=== PATIENT | male | born 1940 ===

== ENCOUNTER 2021-08-01 13:36 | Inpatient (IN) | payer MEDICARE, OTHER ==
[~2021-08-01] VITALS: Ht 152.4 cm; Wt 69.4 kg
[2021-08-01] MEDS ORDERED: IV NORMAL SALINE 1000ML BAG 1,000 ML IV ONE (14:15)
[2021-08-01 14:27] LABS: BASO % 1 % (0-3); EOS % 0 % (0-3); HEMATOCRIT 41.9 % (39.0-53.0); HEMOGLOBIN 13.9 g/dL (13.0-17.5); LYMPH # 0.8 x10^3/uL (1.0-4.8); LYMPH % 14 % (24-48); MEAN CORPUSCULAR HEMOGLOBIN 28 pg (25-35); MEAN CORPUSCULAR HGB CONC 33 g/dL (31-37); MEAN CORPUSCULAR VOLUME 85 fL (79-100); MONO # 0.8 x10^3/uL (0.0-1.1); MONO % 15 % (0-9); NEUT # 3.7 x10^3/uL (1.8-7.7); NEUT % 70 % (31-73); PLATELET COUNT 216 x10^3/uL (140-400); RED BLOOD COUNT 4.93 x10^6/uL (4.30-5.70); RED CELL DISTRIBUTION WIDTH 13.8 % (11.5-14.5); WHITE BLOOD COUNT 5.3 x10^3/uL (4.0-11.0)
[2021-08-01 14:32] LABS: CREATININE 1.3 mg/dL (0.7-1.3); GFR 52.9
[2021-08-01 14:37] LABS: ALBUMIN 3.7 g/dL (3.4-5.0); ALBUMIN/GLOBULIN RATIO 1.2 (1.0-1.7); TOTAL BILIRUBIN 0.6 mg/dL (0.2-1.0); TOTAL PROTEIN 6.9 g/dL (6.4-8.2)
--- NOTE | 2021-08-01 14:45 | RAD ---
EXAM: Head and cervical spine CT without contrast. HISTORY: Fall. TECHNIQUE: Computed tomographic images of the head and cervical spine were obtained without contrast. *One or more of the following individualized dose reduction techniques were utilized for this examina tion: 1. Automated exposure control. 2. Adjustment of the mA and/or kV according to patient size. 3. Use of iterative reconstruction technique. COMPARISON: None. FINDINGS: Head: There is no intracranial hemorrhage. There is no mass effect or midline shift. There is no hydr ocephalus. There is ventricular enlargement due to cerebral atrophy. There are chronic infarcts withi n the bilateral basal ganglia. There are cerebral white matter changes due to chronic small vessel di sease. There is evidence of lens surgery. There is a tiny right maxillary sinus mucous retention cyst . The mastoid air cells are clear. There is no suspicious calvarial lesion. Cervical spine: There is mild multilevel listhesis. There is multilevel endplate remodeling with disc space narrowing, osteophytosis and Schmorl's node formation. There is multilevel facet arthropathy. There is no acute fracture. There is calcified plaque involving the carotid bifurcations. There is pu lmonary emphysema. The combination of degenerative changes results in mild right foraminal stenosis a t C2-C3, and moderate to severe bilateral foraminal and mild to moderate central canal stenosis at C3 -C4, severe bilateral foraminal and moderate to severe central canal stenosis at C4-C5, moderate righ t and mild left foraminal and mild central canals of cysts at C5-C6, and moderate to severe bilateral foraminal and mild to moderate central canal stenosis at C6-C7. IMPRESSION: 1. No acute intracranial finding or evidence of acute cervical spine trauma. 2. Cerebral white matter changes due to chronic small vessel disease. 3. Cerebral atrophy with compensatory enlargement of the ventricles. 4. 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 5. 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 Electronically signed by: Amanda Baca MD (08/01/2021 2:43 PM) [id number]
--- NOTE | 2021-08-01 14:50 | RAD ---
EXAM: Chest, single view. HISTORY: Altered mental status. COMPARISON: None. FINDINGS: A frontal view of the chest obtained. There is no infiltrate, pleural effusion or pneumotho rax. The heart is normal in size. IMPRESSION: No acute pulmonary finding. Electronically signed by: Amanda Baca MD (08/01/2021 2:48 PM) [id number]
[2021-08-01 15:04] LABS: BILIRUBIN,URINE NEGATIVE (NEG); CLARITY,URINE CLEAR; COLOR,URINE YELLOW; NITRITE,URINE NEGATIVE (NEG); PH,URINE 5.5 (<5.0-8.0); PROTEIN,URINE NEGATIVE (NEG-TRACE)
--- NOTE | 2021-08-01 15:11 | PHYS DOC ---
Past Medical History Past Medical History: No Pertinent History (TAMARA NELSON DO) Past Surgical History: No Surgical History (SANDRA PULIDO) Smoking Status: Never Smoker Alcohol Use: None (SANDRA PULIDO) General Adult EDM: Chief Complaint: ALTERED MENTAL STATUS HPI: HPI: Patient is a 81 year old male who presents via EMS with reported AMS and fall from standing. Patient reports he was walking to his sisters house, and he had been "walking a long, long ways." He reports he fell while walking and scraped his forehead. He denies loss of consciousness, nausea, vomiting, seizure since his fall. He has no other complaints. (SANDRA PULIDO) Review of Systems: Review of Systems: Constitutional: Denies fever or chills. Eyes: Denies change in visual acuity or visual field deficits. HENT: Denies nasal congestion or sore throat. Respiratory: Denies cough or shortness of breath. Cardiovascular: Denies chest pain or edema. GI: Denies abdominal pain, nausea, vomiting, bloody stools or diarrhea. : Denies dysuria or hematuria Musculoskeletal: Denies back pain or joint pain. Integument: See HPI Neurologic: See HPI ROS & HPI obtained, however may be unreliable secondary to patient's mental status. (SANDRA PULIDO) Heart Score: C/O Chest Pain: No (SANDRA PULIDO) Current Medications: Current Medications Medications (Trade) Dose Ordered Sig/Rob Start Time Stop Time Status Last Admin Dose Admin Sodium Chloride 1,000 ml @ 1,000 mls/hr 1X ONCE 08/01/21 14:15 08/01/21 15:14 08/01/21 14:48 1,000 MLS/HR (SANDRA PULIDO) Allergies: Allergies: Allergies Coded Allergies Type Severity Reaction Last Updated Verified No Known Drug Allergies 08/01/21 No (SANDRA PULIDO) Physical Exam: PE: Constitutional: Well developed, well nourished, no acute distress, non-toxic appearance. HENT: Small abrasion noted on the central forehead near the hairline with surrounding hematoma, otherwise normocephalic. Bilateral external ears normal, oropharynx moist, nose normal. Eyes: PERRLA, EOMI, conjunctiva normal, no discharge. Neck: Normal range of motion, no tenderness, supple. Cardiovascular: Heart rate regular rhythm, no murmur. Lungs & Thorax: Bilateral breath sounds clear to auscultation. Abdomen: Bowel sounds normal, soft, no tenderness, no masses, no pulsatile masses. Skin: Warm, dry, no erythema, no rash. See above for forehead abrasion. Back: No tenderness, no CVA tenderness. Extremities: No tenderness, no cyanosis, no clubbing, ROM intact, no edema. Neurologic: Alert and oriented x4 on exam (nursing staff reports alert to person and season only), motor function grossly intact, sensory function grossly intact, no focal deficits noted. (SANDRA PULIDO) Current Patient Data: Labs: Laboratory Tests Test 08/01/21 14:14 08/01/21 14:57 08/01/21 16:37 White Blood Count 5.3 x10^3/uL (4.0-11.0) Red Blood Count 4.93 x10^6/uL (4.30-5.70) Hemoglobin 13.9 g/dL (13.0-17.5) Hematocrit 41.9 % (39.0-53.0) Mean Corpuscular Volume 85 fL (79-100) Mean Corpuscular Hemoglobin 28 pg (25-35) Mean Corpuscular Hemoglobin Concent 33 g/dL (31-37) Red Cell Distribution Width 13.8 % (11.5-14.5) Platelet Count 216 x10^3/uL (140-400) Neutrophils (%) (Auto) 70 % (31-73) Lymphocytes (%) (Auto) 14 % (24-48) Monocytes (%) (Auto) 15 % (0-9) Eosinophils (%) (Auto) 0 % (0-3) Basophils (%) (Auto) 1 % (0-3) Neutrophils # (Auto) 3.7 x10^3/uL (1.8-7.7) Lymphocytes # (Auto) 0.8 x10^3/uL (1.0-4.8) Monocytes # (Auto) 0.8 x10^3/uL (0.0-1.1) Eosinophils # (Auto) 0.0 x10^3/uL (0.0-0.7) Basophils # (Auto) 0.0 x10^3/uL (0.0-0.2) Sodium Level 141 mmol/L (136-145) Potassium Level 4.0 mmol/L (3.5-5.1) Chloride Level 104 mmol/L (98-107) Carbon Dioxide Level 25 mmol/L (21-32) Anion Gap 12 (6-14) Blood Urea Nitrogen 20 mg/dL (8-26) Creatinine 1.3 mg/dL (0.7-1.3) Estimated GFR (Cockcroft-Gault) 52.9 BUN/Creatinine Ratio 15 (6-20) Glucose Level 79 mg/dL (70-99) Lactic Acid Level 2.7 mmol/L (0.4-2.0) Calcium Level 9.0 mg/dL (8.5-10.1) Total Bilirubin 0.6 mg/dL (0.2-1.0) Aspartate Amino Transf (AST/SGOT) 28 U/L (15-37) Alanine Aminotransferase (ALT/SGPT) 12 U/L (16-63) Alkaline Phosphatase 76 U/L (46-116) Total Protein 6.9 g/dL (6.4-8.2) Albumin 3.7 g/dL (3.4-5.0) Albumin/Globulin Ratio 1.2 (1.0-1.7) Urine Collection Type Unknown Urine Color Yellow Urine Clarity Clear Urine pH 5.5 (<5.0-8.0) Urine Specific [place] 1.025 (1.000-1.030) Urine Protein Negative mg/dL (NEG-TRACE) Urine Glucose (UA) Negative mg/dL (NEG) Urine Ketones (Stick) 15 mg/dL (NEG) Urine Blood Negative (NEG) Urine Nitrite Negative (NEG) Urine Bilirubin Negative (NEG) Urine Urobilinogen Dipstick 1.0 mg/dL (0.2 mg/dL) Urine Leukocyte Esterase Moderate (NEG) Urine RBC 0 /HPF (0-2) Urine WBC >40 /HPF (0-4) Urine Squamous Epithelial Cells Few /LPF Urine Amorphous Sediment Present /HPF Urine Bacteria Few /HPF (0-FEW) SARS-CoV-2 Antigen (Rapid) Negative (NEGATIVE) Laboratory Tests 08/01/21 14:14 Laboratory Tests 08/01/21 14:14 Vital Signs: Vital Signs Date Time Temp Pulse Resp B/P (MAP) Pulse Ox O2 Delivery O2 Flow Rate FiO2 08/01/21 14:50 89 16 162/78 (106) 98 Room Air 08/01/21 13:45 98.7 113 20 172/76 (108) 98 Room Air 98.7 (SANDRA PULIDO) EKG: EKG: EKG Interpreted by Dr. Dr. Nelson at 1512: Elevated heart rate 125 bpm with sinus arrhythmia, no ectopic beats. No concerning ST-T wave changes. QT 348 ms/QTC 504 ms. (SANDRA PULIDO) Radiology/Procedures: Radiology/Procedures: PROCEDURE: PORTABLE CHEST 1V EXAM: Chest, single view. HISTORY: Altered mental status. COMPARISON: None. FINDINGS: A frontal view of the chest obtained. There is no infiltrate, pleural effusion or pneumothorax. The heart is normal in size. IMPRESSION: No acute pulmonary finding. Electronically signed by: Amanda Baca MD (08/01/2021 2:48 PM) [id number] PROCEDURE: CT HEAD AND CERVICAL SPINE WO EXAM: Head and cervical spine CT without contrast. HISTORY: Fall. TECHNIQUE: Computed tomographic images of the head and cervical spine were obtained without contrast. *One or more of the following individualized dose reduction techniques were utilized for this examination: 1. Automated exposure control. 2. Adjustment of the mA and/or kV according to patient size. 3. Use of iterative reconstruction technique. COMPARISON: None. FINDINGS: Head: There is no intracranial hemorrhage. There is no mass effect or midline shift. There is no hydrocephalus. There is ventricular enlargement due to cerebral atrophy. There are chronic infarcts within the bilateral basal ganglia. There are cerebral white matter changes due to chronic small vessel disease. There is evidence of lens surgery. There is a tiny right maxillary sinus mucous retention cyst. The mastoid air cells are clear. There is no suspicious calvarial lesion. Cervical spine: There is mild multilevel listhesis. There is multilevel endplate remodeling with disc space narrowing, osteophytosis and Schmorl's node formation. There is multilevel facet arthropathy. There is no acute fracture. There is calcified plaque involving the carotid bifurcations. There is pulmonary emphysema. The combination of degenerative changes results in mild right foraminal stenosis at C2-C3, and moderate to severe bilateral foraminal and mild to moderate central canal stenosis at C3-C4, severe bilateral foraminal and moderate to severe central canal stenosis at C4-C5, moderate right and mild left foraminal and mild central canals of cysts at C5-C6, and moderate to severe so ateral foraminal and mild to moderate central canal stenosis at C6-C7. IMPRESSION: 1. No acute intracranial finding or evidence of acute cervical spine trauma. 2. Cerebral white matter changes due to chronic small vessel disease. 3. Cerebral atrophy with compensatory enlargement of the ventricles. 4. 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 5. 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 Electronically signed by: Amanda Baca MD (08/01/2021 2:43 PM) [id number] (SANDRA PULIDO) Course & Med Decision Making: Course & Med Decision Making Pertinent Labs and Imaging studies reviewed. (See chart for details) Patient work-up will include blood work, urinalysis, EKG, chest x-ray, head and neck CT plain. Patient's urine shows evidence of UTI. Due to patient's mode of arrival, he does not have transportation available to pharmacy picking technician prescriptions or get home. Patient does not have his sister's cell phone number available, nor does he have a cell phone. Patient will need admission for inpatient treatment of UTI with altered mental status. Will notify family if they call or contact information becomes available. Patient admitted to hospitalist service for septic UTI. (SANDRA PULIDO) Dragon Disclaimer: Dragon Disclaimer: This electronic medical record was generated, in whole or in part, using a voice recognition dictation system. (SANDRA PULIDO) Departure Departure Impression: Primary Impression: Altered mental status Qualified Codes: R41.0 - Disorientation, unspecified Additional Impressions: Urinary tract infection in elderly patient Urinary tract infection in male Disposition: ADMITTED INPATIENT Condition: GUARDED Attending Signature Attending Signature I have reviewed the PA/SENIOR PRODUCT MARKETING MANAGER's note and plan of care. I was available for consultation as needed during the patient's visit in the emergency department. I agree with the clinical impression, plan, and disposition. (TAMARA NELSON DO) SANDRA PULIDO Aug 01, 2021 15:11 TAMARA NELSON DO Aug 02, 2021 06:33
[2021-08-01 15:23] LABS: RBC,URINE 0 /HPF (0-2); WBC,URINE >40 /HPF (0-4)
[2021-08-01 15:24] LABS: AMORPHOUS SEDIMENT,UR PRESENT /HPF; BACTERIA,URINE FEW /HPF (0-FEW)
--- NOTE | 2021-08-01 15:36 | EKG ---
[facility] [address] [place] [address] Test Date: 2021-08-01 Test Time: 14:59:45 Pat Name: TED HOPE Department: Room: Gender: M Jewellery Designer: : 1940 Requested By: SANDRA PULIDO Order Number: [id number] Reading MD: Vamshi Swift Measurements Intervals [place] Rate: 125 P: [place]: QRS: -24 QRSD: 66 T: 31 QT: 348 QTc: 504 Interpretive Statements SINUS RHYTHM MILD NONSPECIFIC ST CHANGES Electronically Signed On 08-03-2021 9:50:59 ELECTRICAL TESTS SUPERVISOR by Vamshi Swift
--- NOTE | 2021-08-01 17:27 | PDOC1 ---
History and Physical Date of Admission Date of Admission DATE: 08/01/21 TIME: 17:23 Identification/Chief Complaint Chief Complaint Confusion Source Source: Chart review, Patient History of Present Illness History of Present Illness Mr Cerda is an 81 year old male with no known PMHx who comes to the ED via EMS after being found wandering by police. Pt was found by [facility] at the corner of [address] [place] [address]. Per EMS he apparently tripped on the curb and had an abrasion on his forehead. He could not identify the year or month and noted he was running to his sisters house. He does not know his sisters address. He thinks he takes 2 medications. Denies any surgical history, denies travel or sick contacts. He does not drink or smoke or use illicit substances. He reports he fell while walking and scraped his forehead. He denies loss of consciousness, nausea, vomiting, seizure since his fall. He has no other complaints. He is oriented to person only and is easily redirected but cannot provide health information or even his address despite it being on his ID. WBC 5.3, Hb 13.9, platelets 216, NA 141, K4, BUN 20, CR 1.3, LFTs within normal laboratory limits, lactic acid 2.7, urinalysis with moderate leuk esterase, rapid COVID-19 negative EKG appears sinus tachycardia 125 bpm leftward axis. Normal intervals, QTC 504 CT head with no acute intracranial findings in the brain or cervical spine, significant cerebral atrophy, chronic bilateral basal ganglia infarcts Chest radiograph with no acute findings Admitted for further care Past Medical History Past Medical History reviewed Cardiovascular: No pertinent hx Past Surgical History Past Surgical History reviewed Past Surgical History: No pertinent history Family History Family History reviewed Family History: Family History Unknown Social History Smoke: No ALCOHOL: none Drugs: None Current Problem List Problem List Problems Medical Problems: (1) Altered mental status Status: Acute (2) Urinary tract infection in elderly patient Status: Acute (3) Urinary tract infection in male Status: Acute Current Medications Current Medications Current Medications Sodium Chloride 1,000 ml @ 1,000 mls/hr 1X ONCE IV Last administered on 08/01/21at 14:48; Start 08/01/21 at 14:15; Stop 08/01/21 at 15:14; Status DC Allergies Allergies: Coded Allergies: No Known Drug Allergies (Unverified , 08/01/21) ROS General: No: Chills, Night Sweats, Fatigue, Malaise, Appetite, Other PSYCHOLOGICAL ROS: YES: Concentration difficultie, Disorientation, Memory difficulties; No: Anxiety, Behavioral Disorder, Decreased libido, Depression, Hallucinations, Hostility, Irritablity, Mood Swings, Obsessive thoughts, Phy sical abuse, Sexual abuse, Sleep disturbances, Suicidal ideation, Other Eyes: No Blurry vision, No Decreased vision, No Double vision, No Dry eyes, No Excessive tearing, No Eye Pain, No Itchy Eyes, No Loss of vision, No Photophobia, No Scotomata, No Uses contacts, No Uses glasses, No Other HEENT: No: Heacaches, Visual Changes, Hearing change, Nasal congestion, Nasal discharge, Oral lesions, Sinus pain, Sore Throat, Epistaxis, Sneezing, Snoring, Tinnitus, Vertigo, Vocal changes, Other ALLERGY AND IMMUNOLOGY: No: Hives, Insect Bite Sensitivity, Itchy/Watery Eyes, Nasal Congestion, Post Nasal Drip, Seasonal Allergies, Other Hematological and Lymphatic: No: Bleeding Problems, Blood Clots, Blood Transfusions, Brusing, Night Sweats, Pallor, Swollen Lymph Nodes, Other ENDOCRINE: No: Breast Changes, Galactorrhea, Hair Pattern Changes, Hot Flashes, Malaise/lethargy, Mood Swings, Palpitations, Polydipsia/polyuria, Skin Changes, Temperature Intolerance, Unexpected Weight Changes, Other Breast: No New/Changing Breast Lumps, No Nipple changes, No Nipple discharge, No Other Respiratory: No: Cough, Hemoptysis, Orthopnea, Pleuritic Pain, Shortness of breath, SOB with excertion, Sputum Changes, Stridor, Tachypnea, Wheezing, Other Cardiovascular: No Chest Pain, No Palpitations, No Orthopnea, No Paroxysmal Noc. Dyspnea, No Edema, No Lt Headedness, No Other Gastrointestinal: No Nausea, No Vomiting, No Abdominal Pain, No Diarrhea, No Constipation, No Melena, No Hematochezia, No Other Genitourinary: No Dysuria, No Frequency, No Incontinence, No Hematuria, No Retention, No Discharge, No Urgency, No Pain, No Flank Pain, No Other, No , No , No , No , No , No , No Musculoskeletal: No Gait Disturbance, No Joint Pain, No Joint Stiffness, No Joint Swelling, No Muscle Pain, No Muscular Weakness, No Pain In:, No Swelling In:, No Other Neurological: Yes Confusion, Yes Memory Loss; No Behavorial Changes, No Bowel/Bladder ControlChng, No Dizziness, No Gait Disturbance, No Headaches, No Impaired Coord/balance, No Numbness/Tingling, No Seizures, No Speech Problems, No Tremors, No Visual Changes, No Weakness, No Other Skin: No Dry Skin, No Eczema, No Hair Changes, No Lumps, No Mole Changes, No Mottling, No Nail Changes, No Pruritus, No Rash, No Skin Lesion Changes, No Other, No Acne Physical Exam General: Alert, Cooperative, No acute distress HEENT: Atraumatic, PERRLA, EOMI, Mucous membr. moist/pink, Other (arcus senilus) Lungs: Clear to auscultation, Normal air movement Heart: S1S2, RRR, no thrills, no rubs, no gallops, no murmurs Abdomen: Normal bowel sounds, Soft, No tenderness, No hepatosplenomegaly, No m asses Rectal Exam: not examined Extremities: No clubbing, No cyanosis, No edema, Normal pulses, No tenderness/swelling Skin: No rashes, No breakdown, No significant lesion Neuro: Normal gait, Normal speech, Strength at 5/5 X4 ext, Normal tone, Sensation intact, Cranial nerves 3-12 NL, Reflexes 2+ Psych/Mental Status: Other (Pleasantly confused) Vitals Vitals Vital Signs Date Time Temp Pulse Resp B/P (MAP) Pulse Ox O2 Delivery O2 Flow Rate FiO2 08/01/21 14:50 89 16 162/78 (106) 98 Room Air 08/01/21 13:45 98.7 98.7 Labs Labs Laboratory Tests Test 08/01/21 14:14 08/01/21 14:57 08/01/21 16:37 White Blood Count 5.3 x10^3/uL (4.0-11.0) Red Blood Count 4.93 x10^6/uL (4.30-5.70) Hemoglobin 13.9 g/dL (13.0-17.5) Hematocrit 41.9 % (39.0-53.0) Mean Corpuscular Volume 85 fL (79-100) Mean Corpuscular Hemoglobin 28 pg (25-35) Mean Corpuscular Hemoglobin Concent 33 g/dL (31-37) Red Cell Distribution Width 13.8 % (11.5-14.5) Platelet Count 216 x10^3/uL (140-400) Neutrophils (%) (Auto) 70 % (31-73) Lymphocytes (%) (Auto) 14 % (24-48) Monocytes (%) (Auto) 15 % (0-9) Eosinophils (%) (Auto) 0 % (0-3) Basophils (%) (Auto) 1 % (0-3) Neutrophils # (Auto) 3.7 x10^3/uL (1.8-7.7) Lymphocytes # (Auto) 0.8 x10^3/uL (1.0-4.8) Monocytes # (Auto) 0.8 x10^3/uL (0.0-1.1) Eosinophils # (Auto) 0.0 x10^3/uL (0.0-0.7) Basophils # (Auto) 0.0 x10^3/uL (0.0-0.2) Sodium Level 141 mmol/L (136-145) Potassium Level 4.0 mmol/L (3.5-5.1) Chloride Level 104 mmol/L (98-107) Carbon Dioxide Level 25 mmol/L (21-32) Anion Gap 12 (6-14) Blood Urea Nitrogen 20 mg/dL (8-26) Creatinine 1.3 mg/dL (0.7-1.3) Estimated GFR (Cockcroft-Gault) 52.9 BUN/Creatinine Ratio 15 (6-20) Glucose Level 79 mg/dL (70-99) Lactic Acid Level 2.7 mmol/L (0.4-2.0) Calcium Level 9.0 mg/dL (8.5-10.1) Total Bilirubin 0.6 mg/dL (0.2-1.0) Aspartate Amino Transf (AST/SGOT) 28 U/L (15-37) Alanine Aminotransferase (ALT/SGPT) 12 U/L (16-63) Alkaline Phosphatase 76 U/L (46-116) Total Protein 6.9 g/dL (6.4-8.2) Albumin 3.7 g/dL (3.4-5.0) Albumin/Globulin Ratio 1.2 (1.0-1.7) Urine Collection Type Unknown Urine Color Yellow Urine Clarity Clear Urine pH 5.5 (<5.0-8.0) Urine Specific [place] 1.025 (1.000-1.030) Urine Protein Negative mg/dL (NEG-TRACE) Urine Glucose (UA) Negative mg/dL (NEG) Urine Ketones (Stick) 15 mg/dL (NEG) Urine Blood Negative (NEG) Urine Nitrite Negative (NEG) Urine Bilirubin Negative (NEG) Urine Urobilinogen Dipstick 1.0 mg/dL (0.2 mg/dL) Urine Leukocyte Esterase Moderate (NEG) Urine RBC 0 /HPF (0-2) Urine WBC >40 /HPF (0-4) Urine Squamous Epithelial Cells Few /LPF Urine Amorphous Sediment Present /HPF Urine Bacteria Few /HPF (0-FEW) SARS-CoV-2 Antigen (Rapid) Negative (NEGATIVE) Laboratory Tests Test 08/01/21 14:14 08/01/21 14:57 08/01/21 16:37 White Blood Count 5.3 x10^3/uL (4.0-11.0) Red Blood Count 4.93 x10^6/uL (4.30-5.70) Hemoglobin 13.9 g/dL (13.0-17.5) Hematocrit 41.9 % (39.0-53.0) Mean Corpuscular Volume 85 fL (79-100) Mean Corpuscular Hemoglobin 28 pg (25-35) Mean Corpuscular Hemoglobin Concent 33 g/dL (31-37) Red Cell Distribution Width 13.8 % (11.5-14.5) Platelet Count 216 x10^3/uL (140-400) Neutrophils (%) (Auto) 70 % (31-73) Lymphocytes (%) (Auto) 14 % (24-48) Monocytes (%) (Auto) 15 % (0-9) Eosinophils (%) (Auto) 0 % (0-3) Basophils (%) (Auto) 1 % (0-3) Neutrophils # (Auto) 3.7 x10^3/uL (1.8-7.7) Lymphocytes # (Auto) 0.8 x10^3/uL (1.0-4.8) Monocytes # (Auto) 0.8 x10^3/uL (0.0-1.1) Eosinophils # (Auto) 0.0 x10^3/uL (0.0-0.7) Basophils # (Auto) 0.0 x10^3/uL (0.0-0.2) Sodium Level 141 mmol/L (136-145) Potassium Level 4.0 mmol/L (3.5-5.1) Chloride Level 104 mmol/L (98-107) Carbon Dioxide Level 25 mmol/L (21-32) Anion Gap 12 (6-14) Blood Urea Nitrogen 20 mg/dL (8-26) Creatinine 1.3 mg/dL (0.7-1.3) Estimated GFR (Cockcroft-Gault) 52.9 BUN/Creatinine Ratio 15 (6-20) Glucose Level 79 mg/dL (70-99) Lactic Acid Level 2.7 mmol/L (0.4-2.0) Calcium Level 9.0 mg/dL (8.5-10.1) Total Bilirubin 0.6 mg/dL (0.2-1.0) Aspartate Amino Transf (AST/SGOT) 28 U/L (15-37) Alanine Aminotransferase (ALT/SGPT) 12 U/L (16-63) Alkaline Phosphatase 76 U/L (46-116) Total Protein 6.9 g/dL (6.4-8.2) Albumin 3.7 g/dL (3.4-5.0) Albumin/Globulin Ratio 1.2 (1.0-1.7) Urine Collection Type Unknown Urine Color Yellow Urine Clarity Clear Urine pH 5.5 (<5.0-8.0) Urine Specific [place] 1.025 (1.000-1.030) Urine Protein Negative mg/dL (NEG-TRACE) Urine Glucose (UA) Negative mg/dL (NEG) Urine Ketones (Stick) 15 mg/dL (NEG) Urine Blood Negative (NEG) Urine Nitrite Negative (NEG) Urine Bilirubin Negative (NEG) Urine Urobilinogen Dipstick 1.0 mg/dL (0.2 mg/dL) Urine Leukocyte Esterase Moderate (NEG) Urine RBC 0 /HPF (0-2) Urine WBC >40 /HPF (0-4) Urine Squamous Epithelial Cells Few /LPF Urine Amorphous Sediment Present /HPF Urine Bacteria Few /HPF (0-FEW) SARS-CoV-2 Antigen (Rapid) Negative (NEGATIVE) Images Images Chest radiograph: A frontal view of the chest obtained. There is no infiltrate, pleural effusion or pneumothorax. The heart is normal in size. IMPRESSION: No acute pulmonary finding. CT HEAD AND CERVICAL SPINE WO Head: There is no intracranial hemorrhage. There is no mass effect or midline shift. There is no hydrocephalus. There is ventricular enlargement due to cerebral atrophy. There are chronic infarcts within the bilateral basal ganglia. There are cerebral white matter changes due to chronic small vessel disease. There is evidence of lens surgery. There is a tiny right maxillary sinus mucous retention cyst. The mastoid air cells are clear. There is no suspicious calvarial lesion. Cervical spine: There is mild multilevel listhesis. There is multilevel endplate remodeling with disc space narrowing, osteophytosis and Schmorl's node formation. There is multilevel facet arthropathy. There is no acute fracture. There is calcified plaque involving the carotid bifurcations. There is pulmonary emphysema. The combination of degenerative changes results in mild right foraminal stenosis at C2-C3, and moderate to severe bilateral foraminal and mild to moderate central canal stenosis at C3-C4, severe bilateral foraminal and moderate to severe central canal stenosis at C4-C5, moderate right and mild left foraminal and mild central canals of cysts at C5-C6, and moderate to severe bilateral foraminal and mild to moderate central canal stenosis at C6-C7. IMPRESSION: 1. No acute intracranial finding or evidence of acute cervical spine trauma. 2. Cerebral white matter changes due to chronic small vessel disease. 3. Cerebral atrophy with compensatory enlargement of the ventricles. 4. 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 5. 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 VTE Prophylaxis Ordered VTE Prophylaxis Devices: No VTE Pharmacological Prophylaxi: Yes Assessment/Plan Assessment/Plan A/P: Acute encephalopathy - likely metabolic due to UTI, he also has CT head evidence of likely prior basal ganglia CVAs UTI in male - rocephin IV. Will need to f/u cultures. Check PVR. will need longer course of antibiotics given UTI in male is by definition complicated, 10 day course indicated Elevated lactate - will trend. Likely from early sepsis Abnormal CT head - likely prior CVA in basal ganglia Elevated blood pressure without diagnosis of hypertension - will monitor trend Frontal scalp abrasion - local wound care. FEN - General diet PPX - lovenox FULL CODE Dispo - inpatient. Concern for placement if his mental status does not improve, clearly he is not safe to be alone if this is his baseline mental status. He has no phone and no family to reach. Justifications for Admission Other Justification MYKE FRANKEL MD Aug 01, 2021 17:27
[2021-08-01] MEDS ORDERED: cefTRIAXone IV Push 1 GM VIAL. IVP ONE (17:30)
[2021-08-01] MEDS ORDERED: guaiFENesin DM 200MG/20MG 10 ML SYRUP PO PRN (19:15)
[2021-08-01] MEDS ORDERED: ONDANSETRON ODT 4 MG TAB.RAPDIS. PO PRN (19:15)
[2021-08-01] MEDS ORDERED: ACETAMINOPHEN 325 MG TABLET. PO PRN (19:15)
[2021-08-01] MEDS ORDERED: ONDANSETRON PF 4 MG/2 ML VIAL. IVP PRN (19:15)
[2021-08-01 19:30] VITALS: BP 175/85
[2021-08-01] MEDS: hydrALAZINE 20 MG/ML VIAL. IVP PRN (21:14)
[2021-08-01] MEDS: PSYLLIUM HUSK (SUGAR FREE) 1 PKT PACKET PO SCH (21:14)
[2021-08-01] MEDS: HEPARIN for SUB-Q USE 5,000 UNIT/ML VIAL. SQ SCH (22:09)
[2021-08-01 23:00] VITALS: BP 151/72
[2021-08-02] MEDS: fentaNYL PF VIAL 100 MCG/2 ML VIAL IVP PRN ×2 (01:56→20:18)
[2021-08-02] MEDS: cefTRIAXone IV Push 1 GM VIAL. IVP SCH (05:32)
[2021-08-02] MEDS: HEPARIN for SUB-Q USE 5,000 UNIT/ML VIAL. SQ SCH ×3 (05:33→22:38)
[2021-08-02 08:55] LABS: ALBUMIN 3.1 g/dL (3.4-5.0); CALCIUM 8.4 mg/dL (8.5-10.1); CREATININE 0.9 mg/dL (0.7-1.3); GFR 80.8; POTASSIUM 3.9 mmol/L (3.5-5.1); TOTAL BILIRUBIN 0.6 mg/dL (0.2-1.0); TOTAL PROTEIN 6.2 g/dL (6.4-8.2)
--- NOTE | 2021-08-02 10:51 | PDOC ---
[facility] PROGRESS NOTE Date of Service DOS: DATE: 08/02/21 TIME: 10:47 Chief Complaint Chief Complaint Assessment/Plan A/P: Acute encephalopathy - likely metabolic due to UTI, he also has CT head evidence of likely prior basal ganglia CVAs UTI in male - rocephin IV. Will need to f/u cultures. Check PVR. will need longer course of antibiotics given UTI in male is by definition complicated, 10 day course indicated Elevated lactate - will trend. Likely from early sepsis Abnormal CT head - likely prior CVA in basal ganglia Elevated blood pressure without diagnosis of hypertension - will monitor trend Frontal scalp abrasion - local wound care. FEN - General diet PPX - lovenox FULL CODE Dispo - inpatient. Concern for placement if his mental status does not improve, clearly he is not safe to be alone if this is his baseline mental status. He has no phone and no family to reach. Maybe social work can help? History of Present Illness History of Present Illness Mr Cerda is an 81 year old male with no known PMHx who comes to the ED via EMS after being found wandering by police. Pt was found by [facility] at the corner of [address] [place] [address]. Per EMS he apparently tr ipped on the curb and had an abrasion on his forehead. He could not identify the year or month and noted he was running to his sisters house. He does not know his sisters address. He thinks he takes 2 medications. Denies any surgical history, denies travel or sick contacts. He does not drink or smoke or use illicit substances. He reports he fell while walking and scraped his forehead. He denies loss of consciousness, nausea, vomiting, seizure since his fall. He has no other complaints. He is oriented to person only and is easily redirected but cannot provide health information or even his address despite it being on his ID. WBC 5.3, Hb 13.9, platelets 216, NA 141, K4, BUN 20, CR 1.3, LFTs within normal laboratory limits, lactic acid 2.7, urinalysis with moderate leuk esterase, rapid COVID-19 negative EKG appears sinus tachycardia 125 bpm leftward axis. Normal intervals, QTC 504 CT head with no acute intracranial findings in the brain or cervical spine, significant cerebral atrophy, chronic bilateral basal ganglia infarcts Chest radiograph with no acute findings Admitted for further care 08/02 Patient evaluated examined at bedside. Definitely still altered. But was not aware he was in the hospital or why. But is aware of himself. Was asking where his dentures were but they were in his mouth. Continue treating UTI. Plan of care discussed with bedside RN. Vitals/I&O Vitals/I&O: Vital Signs Date Time Temp Pulse Resp B/P (MAP) Pulse Ox O2 Delivery O2 Flow Rate FiO2 08/01/21 23:00 98.0 78 18 151/72 (98) 94 98.0 08/01/21 20:00 Room Air I & O 08/01/21 08/01/21 08/02/21 15:00 23:00 07:00 Output Total 200 ml Balance -200 ml Physical Exam General: Alert, Cooperative, No acute distress Heart: Regular rate Lungs: Clear Abdomen: Normal bowel sounds, Soft, No tenderness, No hepatosplenomegaly, No masses Extremities: No edema, Normal pulses, No tenderness/swelling Skin: No significant lesion Labs Labs: Laboratory Tests Test 08/01/21 14:14 08/01/21 14:57 08/01/21 16:37 08/01/21 20:00 White Blood Count 5.3 x10^3/uL (4.0-11.0) Red Blood Count 4.93 x10^6/uL (4.30-5.70) Hemoglobin 13.9 g/dL (13.0-17.5) Hematocrit 41.9 % (39.0-53.0) Mean Corpuscular Volume 85 fL (79-100) Mean Corpuscular Hemoglobin 28 pg (25-35) Mean Corpuscular Hemoglobin Concent 33 g/dL (31-37) Red Cell Distribution Width 13.8 % (11.5-14.5) Platelet Count 216 x10^3/uL (140-400) Neutrophils (%) (Auto) 70 % (31-73) Lymphocytes (%) (Auto) 14 % (24-48) Monocytes (%) (Auto) 15 % (0-9) Eosinophils (%) (Auto) 0 % (0-3) Basophils (%) (Auto) 1 % (0-3) Neutrophils # (Auto) 3.7 x10^3/uL (1.8-7.7) Lymphocytes # (Auto) 0.8 x10^3/uL (1.0-4.8) Monocytes # (Auto) 0.8 x10^3/uL (0.0-1.1) Eosinophils # (Auto) 0.0 x10^3/uL (0.0-0.7) Basophils # (Auto) 0.0 x10^3/uL (0.0-0.2) Sodium Level 141 mmol/L (136-145) Potassium Level 4.0 mmol/L (3.5-5.1) Chloride Level 104 mmol/L (98-107) Carbon Dioxide Level 25 mmol/L (21-32) Anion Gap 12 (6-14) Blood Urea Nitrogen 20 mg/dL (8-26) Creatinine 1.3 mg/dL (0.7-1.3) Estimated GFR (Cockcroft-Gault) 52.9 BUN/Creatinine Ratio 15 (6-20) Glucose Level 79 mg/dL (70-99) Lactic Acid Level 2.7 mmol/L (0.4-2.0) 1.7 mmol/L (0.4-2.0) Calcium Level 9.0 mg/dL (8.5-10.1) Total Bilirubin 0.6 mg/dL (0.2-1.0) Aspartate Amino Transf (AST/SGOT) 28 U/L (15-37) Alanine Aminotransferase (ALT/SGPT) 12 U/L (16-63) Alkaline Phosphatase 76 U/L (46-116) Total Protein 6.9 g/dL (6.4-8.2) Albumin 3.7 g/dL (3.4-5.0) Albumin/Globulin Ratio 1.2 (1.0-1.7) Urine Collection Type Unknown Urine Color Yellow Urine Clarity Clear Urine pH 5.5 (<5.0-8.0) Urine Specific [place] 1.025 (1.000-1.030) Urine Protein Negative mg/dL (NEG-TRACE) Urine Glucose (UA) Negative mg/dL (NEG) Urine Ketones (Stick) 15 mg/dL (NEG) Urine Blood Negative (NEG) Urine Nitrite Negative (NEG) Urine Bilirubin Negative (NEG) Urine Urobilinogen Dipstick 1.0 mg/dL (0.2 mg/dL) Urine Leukocyte Esterase Moderate (NEG) Urine RBC 0 /HPF (0-2) Urine WBC >40 /HPF (0-4) Urine Squamous Epithelial Cells Few /LPF Urine Amorphous Sediment Present /HPF Urine Bacteria Few /HPF (0-FEW) SARS-CoV-2 Antigen (Rapid) Negative (NEGATIVE) Test 08/02/21 07:05 Sodium Level 143 mmol/L (136-145) Potassium Level 3.9 mmol/L (3.5-5.1) Chloride Level 109 mmol/L (98-107) Carbon Dioxide Level 22 mmol/L (21-32) Anion Gap 12 (6-14) Blood Urea Nitrogen 14 mg/dL (8-26) Creatinine 0.9 mg/dL (0.7-1.3) Estimated GFR (Cockcroft-Gault) 80.8 BUN/Creatinine Ratio 16 (6-20) Glucose Level 72 mg/dL (70-99) Calcium Level 8.4 mg/dL (8.5-10.1) Total Bilirubin 0.6 mg/dL (0.2-1.0) Aspartate Amino Transf (AST/SGOT) 41 U/L (15-37) Alanine Aminotransferase (ALT/SGPT) 21 U/L (16-63) Alkaline Phosphatase 67 U/L (46-116) Total Protein 6.2 g/dL (6.4-8.2) Albumin 3.1 g/dL (3.4-5.0) Albumin/Globulin Ratio 1.0 (1.0-1.7) Assessment and Plan Assessmemt and Plan Problems Medical Problems: (1) Altered mental status Status: Acute (2) Urinary tract infection in elderly patient Status: Acute (3) Urinary tract infection in male Status: Acute Comment Review of Relevant I have reviewed the following items jenni (where applicable) has been applied. Medications: Current Medications Medications (Trade) Dose Ordered Sig/Rob Route PRN Reason Start Time Stop Time Status Last Admin Dose Admin Sodium Chloride 1,000 ml @ 1,000 mls/hr 1X ONCE IV 08/01/21 14:15 08/01/21 15:14 DC 08/01/21 14:48 Ceftriaxone Sodium (Rocephin) 1 gm 1X ONCE IVP 08/01/21 17:30 08/01/21 17:31 DC 08/01/21 17:39 Ceftriaxone Sodium (Rocephin) 1 gm Q24H IVP 08/02/21 06:00 08/02/21 05:32 Hydralazine HCl (Apresoline Inj) 10 mg PRN Q4HRS PRN IVP ELEVATED BP, SEE COMMENTS 08/01/21 19:15 08/01/21 21:14 Psyllium Hydrophilic Mucilloid (Metamucil Fiber Packet) 1 pkt QHS PO 08/01/21 21:00 08/01/21 21:14 Olanzapine (ZyPREXA ZYDIS) 5 mg PRN BID PRN PO ANXIETY / AGITATION 08/01/21 19:15 08/01/21 21:14 Fentanyl Citrate (Fentanyl 2ml Vial) 25 mcg PRN Q3HRS PRN IVP MODERATE TO SEVERE PAIN 08/01/21 19:15 08/02/21 01:56 Heparin Sodium (Porcine) (Heparin Sodium) 5,000 unit Q8HRS SQ 08/01/21 22:00 08/02/21 05:33 Justifications for Admission Other Justification MYKE CARO MD Aug 02, 2021 10:51
[2021-08-02 11:00] VITALS: BP 137/71
[2021-08-02] MEDS: LACTOBACILLUS RHAMNOSUS GG 1 CAPSULE. PO SCH ×2 (11:05→21:33)
[2021-08-02 15:00] VITALS: BP 135/54
[2021-08-02 19:00] VITALS: BP 155/93
[2021-08-02] MEDS: PSYLLIUM HUSK (SUGAR FREE) 1 PKT PACKET PO SCH (21:33)
[2021-08-02] MEDS ORDERED: HALOPERIDOL 0.5 MG TABLET. PO ONE (22:15)
[2021-08-03 03:00] VITALS: BP 144/83
[2021-08-03] MEDS: cefTRIAXone IV Push 1 GM VIAL. IVP SCH (04:52)
[2021-08-03] MEDS: fentaNYL PF VIAL 100 MCG/2 ML VIAL IVP PRN (04:52)
[2021-08-03] MEDS: HEPARIN for SUB-Q USE 5,000 UNIT/ML VIAL. SQ SCH ×3 (05:11→20:47)
[2021-08-03 07:00] VITALS: BP 133/70
[2021-08-03] MEDS: LACTOBACILLUS RHAMNOSUS GG 1 CAPSULE. PO SCH ×2 (09:13→20:43)
--- NOTE | 2021-08-03 10:52 | PDOC ---
[facility] PROGRESS NOTE Date of Service DOS: DATE: 08/03/21 TIME: 10:51 Chief Complaint Chief Complaint Assessment/Plan A/P: Acute encephalopathy - likely metabolic due to UTI, he also has CT head evidence of likely prior basal ganglia CVAs UTI in male - rocephin IV. Will need to f/u cultures. Check PVR. will need longer course of antibiotics given UTI in male is by definition complicated, 10 day course indicated Elevated lactate - will trend. Likely from early sepsis Abnormal CT head - likely prior CVA in basal ganglia Elevated blood pressure without diagnosis of hypertension - will monitor trend Frontal scalp abrasion - local wound care. FEN - General diet PPX - lovenox FULL CODE Dispo - inpatient. Concern for placement if his mental status does not improve, clearly he is not safe to be alone if this is his baseline mental status. He has no phone and no family to reach. Maybe social work can help? History of Present Illness History of Present Illness Mr Cerda is an 81 year old male with no known PMHx who comes to the ED via EMS after being found wandering by police. Pt was found by [facility] at the corner of [address] [place] [address]. Per EMS he apparently tr ipped on the curb and had an abrasion on his forehead. He could not identify the year or month and noted he was running to his sisters house. He does not know his sisters address. He thinks he takes 2 medications. Denies any surgical history, denies travel or sick contacts. He does not drink or smoke or use illicit substances. He reports he fell while walking and scraped his forehead. He denies loss of consciousness, nausea, vomiting, seizure since his fall. He has no other complaints. He is oriented to person only and is easily redirected but cannot provide health information or even his address despite it being on his ID. WBC 5.3, Hb 13.9, platelets 216, NA 141, K4, BUN 20, CR 1.3, LFTs within normal laboratory limits, lactic acid 2.7, urinalysis with moderate leuk esterase, rapid COVID-19 negative EKG appears sinus tachycardia 125 bpm leftward axis. Normal intervals, QTC 504 CT head with no acute intracranial findings in the brain or cervical spine, significant cerebral atrophy, chronic bilateral basal ganglia infarcts Chest radiograph with no acute findings Admitted for further care 08/02 Patient evaluated examined at bedside. Definitely still altered. But was not aware he was in the hospital or why. But is aware of himself. Was asking where his dentures were but they were in his mouth. Continue treating UTI. Plan of care discussed with bedside RN. 08/03 Patient evaluated and examined at bedside. Remains quite altered still may be a little improved from yesterday. Still rather unclear what patient's baseline may be. Intermittently will order PT OT suspect patient will need placement. Vitals/I&O Vitals/I&O: Vital Signs Date Time Temp Pulse Resp B/P (MAP) Pulse Ox O2 Delivery O2 Flow Rate FiO2 08/03/21 07:00 97.4 63 16 133/70 (91) 98 97.4 08/02/21 20:00 Room Air I & O 08/02/21 08/02/21 08/03/21 15:00 23:00 07:00 Intake Total 500 ml 300 ml Output Total 250 ml Balance 500 ml 300 ml -250 ml Physical Exam General: Alert, Cooperative, No acute distress Heart: Regular rate Lungs: Clear Abdomen: Normal bowel sounds, Soft, No tenderness, No hepatosplenomegaly, No masses Extremities: No edema, Normal pulses, No tenderness/swelling Skin: No significant lesion Assessment and Plan Assessmemt and Plan Problems Medical Problems: (1) Altered mental status Status: Acute (2) Urinary tract infection in elderly patient Status: Acute (3) Urinary tract infection in male Status: Acute Comment Review of Relevant I have reviewed the following items jenni (where applicable) has been applied. Medications: Current Medications Medications (Trade) Dose Ordered Sig/Rob Route PRN Reason Start Time Stop Time Status Last Admin Dose Admin Haloperidol (Haldol) 1 mg 1X ONCE PO 08/02/21 22:15 08/02/21 22:16 DC 08/02/21 22:19 Justifications for Admission Other Justification MYKE CARO MD Aug 03, 2021 10:52
[2021-08-03 11:00] VITALS: BP 114/88
--- NOTE | 2021-08-03 13:27 | NUR ---
SW following. Discussed with RN, pt from home alone at [facility], room air, regular diet, COVID-19 negative. Per RN pt's daughter Erna (ph: [phone]) wanting pt placed in a facility, but is a poor historian regarding patient. PT/OT ordered. SW awaiting therapy recommendations for discharge planning. SW will continue to follow.
[2021-08-03 15:00] VITALS: BP 142/74
[2021-08-03 19:00] VITALS: BP 144/66
[2021-08-03] MEDS: PSYLLIUM HUSK (SUGAR FREE) 1 PKT PACKET PO SCH (20:48)
[2021-08-03 22:53] VITALS: BP 153/69
[2021-08-04 03:01] VITALS: BP 144/69
[2021-08-04] MEDS: HEPARIN for SUB-Q USE 5,000 UNIT/ML VIAL. SQ SCH ×3 (06:06→21:45)
[2021-08-04] MEDS: cefTRIAXone IV Push 1 GM VIAL. IVP SCH (06:06)
[2021-08-04 07:00] VITALS: BP 147/75
[2021-08-04] MEDS: LACTOBACILLUS RHAMNOSUS GG 1 CAPSULE. PO SCH ×2 (08:41→21:43)
[2021-08-04 11:00] VITALS: BP 155/74
[2021-08-04 15:00] VITALS: BP 164/86
[2021-08-04 19:00] VITALS: BP 175/87
--- NOTE | 2021-08-04 20:57 | PDOC ---
[facility] PROGRESS NOTE Date of Service DOS: DATE: 08/04/21 TIME: 20:55 Chief Complaint Chief Complaint Assessment/Plan A/P: Acute encephalopathy - likely metabolic due to UTI, he also has CT head evidence of likely prior basal ganglia CVAs UTI in male - rocephin IV. Will need to f/u cultures. Check PVR. will need longer course of antibiotics given UTI in male is by definition complicated, 10 day course indicated Elevated lactate - will trend. Likely from early sepsis Abnormal CT head - likely prior CVA in basal ganglia Elevated blood pressure without diagnosis of hypertension - will monitor trend Frontal scalp abrasion - local wound care. FEN - General diet PPX - lovenox FULL CODE Dispo - inpatient. Concern for placement if his mental status does not improve, clearly he is not safe to be alone if this is his baseline mental status. He has no phone and no family to reach. Maybe social work can help? History of Present Illness History of Present Illness Mr Cerda is an 81 year old male with no known PMHx who comes to the ED via EMS after being found wandering by police. Pt was found by [facility] at the corner of [address] [place] [address]. Per EMS he apparently tr ipped on the curb and had an abrasion on his forehead. He could not identify the year or month and noted he was running to his sisters house. He does not know his sisters address. He thinks he takes 2 medications. Denies any surgical history, denies travel or sick contacts. He does not drink or smoke or use illicit substances. He reports he fell while walking and scraped his forehead. He denies loss of consciousness, nausea, vomiting, seizure since his fall. He has no other complaints. He is oriented to person only and is easily redirected but cannot provide health information or even his address despite it being on his ID. WBC 5.3, Hb 13.9, platelets 216, NA 141, K4, BUN 20, CR 1.3, LFTs within normal laboratory limits, lactic acid 2.7, urinalysis with moderate leuk esterase, rapid COVID-19 negative EKG appears sinus tachycardia 125 bpm leftward axis. Normal intervals, QTC 504 CT head with no acute intracranial findings in the brain or cervical spine, significant cerebral atrophy, chronic bilateral basal ganglia infarcts Chest radiograph with no acute findings Admitted for further care 08/02 Patient evaluated examined at bedside. Definitely still altered. But was not aware he was in the hospital or why. But is aware of himself. Was asking where his dentures were but they were in his mouth. Continue treating UTI. Plan of care discussed with bedside RN. 08/03 Patient evaluated and examined at bedside. Remains quite altered still may be a little improved from yesterday. Still rather unclear what patient's baseline may be. Intermittently will order PT OT suspect patient will need placement. 08/04 Patient evaluated examined at bedside. Resting in bed no complaints still pretty altered. Worked with therapy today recommending senior care facility placement. Will let social work know. Possible discharge once placement is found. Vitals/I&O Vitals/I&O: Vital Signs Date Time Temp Pulse Resp B/P (MAP) Pulse Ox O2 Delivery O2 Flow Rate FiO2 08/04/21 19:00 98.0 81 18 175/87 (116) 93 Room Air 98.0 I & O 08/03/21 08/03/21 08/04/21 15:00 23:00 07:00 Intake Total 300 ml 100 ml 360 ml Balance 300 ml 100 ml 360 ml Physical Exam General: Alert, Cooperative, No acute distress Heart: Regular rate Lungs: Clear Abdomen: Normal bowel sounds, Soft, No tenderness, No hepatosplenomegaly, No masses Extremities: No edema, Normal pulses, No tenderness/swelling Skin: No significant lesion Assessment and Plan Assessmemt and Plan Problems Medical Problems: (1) Altered mental status Status: Acute (2) Urinary tract infection in elderly patient Status: Acute (3) Urinary tract infection in male Status: Acute Comment Review of Relevant I have reviewed the following items jenni (where applicable) has been applied. Justifications for Admission Other Justification MYKE CARO MD Aug 04, 2021 20:57
[2021-08-04] MEDS: PSYLLIUM HUSK (SUGAR FREE) 1 PKT PACKET PO SCH ×2 (21:00→21:43)
[2021-08-04 23:00] VITALS: BP 180/90
[2021-08-04] MEDS: hydrALAZINE 20 MG/ML VIAL. IVP PRN (23:47)
[2021-08-05 02:56] VITALS: BP 165/90
[2021-08-05] MEDS: cefTRIAXone IV Push 1 GM VIAL. IVP SCH (05:47)
[2021-08-05] MEDS: HEPARIN for SUB-Q USE 5,000 UNIT/ML VIAL. SQ SCH (05:55)
[2021-08-05] MEDS: LACTOBACILLUS RHAMNOSUS GG 1 CAPSULE. PO SCH (09:00)
--- NOTE | 2021-08-05 09:00 | NUR ---
PATIENT UP AND AMBULATING TOWARDS THE HALLWAY, PATIENT DRESSED IN STREET CLOTHES AND REQUESTING TO GO HOME, ASKING THIS GATHERING WORKER TO RETURN HIS MONEY TO HIM (PATIENT HAS PERSONAL BELONGINGS LOCKED IN SECURITY)., PATIENT EASILY REDIRECTED TO HIS ROOM, DR. CARO ON THE UNIT AND INFORMED, WILL NOTIFY PATIENTS' DAUGHTER DAVID.
[2021-08-05] MEDS ORDERED: NITR100C63 PO (10:30)
--- NOTE | 2021-08-05 10:34 | SNU/HH DC ---
DISCHARGE WITH HOME HEALTH DISCHARGE INFORMATION: Discharge Date: Aug 05, 2021 Final Diagnosis: Problems Medical Problems: (1) Altered mental status Status: Acute (2) Urinary tract infection in elderly patient Status: Acute (3) Urinary tract infection in male Status: Acute Condition on Discharge: Stable CODE STATUS: Code Status: Full HOME HEALTH: Face to Face: I certify this patient is under my care and that I, or a nurse practitioner or physician's shampoo assistant working with me, had a face to face encounter that meets the physician face to face encounter requirements with this patient on [12-1]. [facility] For: Assess Cardiopulm Status, Assess & Educate Safety RN For Eval/Treatment: Yes Pt Meets Homebound Status: Fatigue w/ amb., Poor cognition, Psychological condition POST DISCHARGE ORDERS: Activity Instructions for Disc: Activity as tolerated Weight Bearing Status after Di: As tolerated DIET AFTER DISCHARGE: Regular CHECKS AFTER DISCHARGE: Checks after discharge: Check blood press - daily TREATMENT/EQUIPMENT ORDERS: Adaptive Equipment Issued: None CERTIFICATION STATEMENT: Certification Statement: Certification Statement: Based on the above finding, I certify that this patient is confined to the home and needs intermittent fci care, physical therapy and/or speech therapy, or continues to need occupational therapy.~ This patient is under my care, and I have initiated the establishment of the plan of care.~ This patient will be followed by myself or a community physician who will periodically review the plan of care. Home Meds Active Scripts Nitrofurantoin Macrocrystal (MACRODANTIN) 100 Mg Capsule, 1 CAP PO BID for UTI for 7 Days, #14 CAP 0 Refills Prov:MYKE CARO MD 08/05/21 MYKE CARO MD Aug 05, 2021 10:34
--- NOTE | 2021-08-05 10:37 | PDOC3 ---
[facility]-Discharge Summary Date of Admission: Date of Admission: Aug 01, 2021 Date of Discharge: Date of Discharge: Aug 05, 2021 Admission Diagnosis: Problems: (1) Urinary tract infection in male (2) Altered mental status Discharge Diagnosis: Discharge Diagnosis: Same Hospital Course: Hospital Course: Chief Complaint Assessment/Plan A/P: Acute encephalopathy - likely metabolic due to UTI, he also has CT head evidence of likely prior basal ganglia CVAs UTI in male - rocephin IV. Will need to f/u cultures. Check PVR. will need longer course of antibiotics given UTI in male is by definition complicated, 10 day course indicated Elevated lactate - will trend. Likely from early sepsis Abnormal CT head - likely prior CVA in basal ganglia Elevated blood pressure without diagnosis of hypertension - will monitor trend Frontal scalp abrasion - local wound care. FEN - General diet PPX - lovenox FULL CODE Dispo - inpatient. Concern for placement if his mental status does not improve, clearly he is not safe to be alone if this is his baseline mental status. He has no phone and no family to reach. Maybe social work can help? History of Present Illness History of Present Illness Mr Cerda is an 81 year old male with no known PMHx who comes to the ED via EMS after being found wandering by police. Pt was found by [employer] at the corner of [address] [place] [address]. Per EMS he apparently tripped on the curb and had an abrasion on his forehead. He could not identify the year or month and noted he was running to his sisters house. He does not know his sisters address. He thinks he takes 2 medications. Denies any surgical history, denies travel or sick contacts. He does not drink or smoke or use illicit substances. He reports he fell while walking and scraped his forehead. He denies loss of consciousness, nausea, vomiting, seizure since his fall. He has no other complaints. He is oriented to person only and is easily redirected but cannot provide health information or even his address despite it being on his ID. WBC 5.3, Hb 13.9, platelets 216, NA 141, K4, BUN 20, CR 1.3, LFTs within normal laboratory limits, lactic acid 2.7, urinalysis with moderate leuk esterase, rapid COVID-19 negative EKG appears sinus tachycardia 125 bpm leftward axis. Normal intervals, QTC 504 CT head with no acute intracranial findings in the brain or cervical spine, significant cerebral atrophy, chronic bilateral basal ganglia infarcts Chest radiograph with no acute findings Admitted for further care 08/02 Patient evaluated examined at bedside. Definitely still altered. But was not aware he was in the hospital or why. But is aware of himself. Was asking where his dentures were but they were in his mouth. Continue treating UTI. Plan of care discussed with bedside RN. 08/03 Patient evaluated and examined at bedside. Remains quite altered still may be a little improved from yesterday. Still rather unclear what patient's baseline may be. Intermittently will order PT OT suspect patient will need placement. 08/04 Patient evaluated examined at bedside. Resting in bed no complaints still pretty altered. Worked with therapy today recommending prison facility placement. Will let social work know. Possible discharge once placement is found. 08/05 Patient evaluated in hallway since he was ambulating trying to leave. Explained to him why this was not safe. Discharging today with home health patient's family needs to set up placement if needed. Patient provided written prescript ion to complete antibiotics. Greater than 30 minutes spent on this discharge. Disposition: Disposition/Orders: D/C to Home Activity: Activity: Resume previous activity Diet: Diet: Regular Medications: Home Meds Active Scripts Nitrofurantoin Macrocrystal (MACRODANTIN) 100 Mg Capsule, 1 CAP PO BID for UTI for 7 Days, #14 CAP 0 Refills Prov:MYKE CARO MD 08/05/21 Scheduled Nitrofurantoin Macrocrystal (Macrodantin), 1 CAP PO BID Justicifation of Admission Dx: Justifications for Admission: Justification of Admission Dx: Yes Altered Mental Status: Altered Mental Status MYKE CARO MD Aug 05, 2021 10:37
--- NOTE | 2021-08-05 12:01 | NUR ---
PATIENT LEAVES THE UNIT PER W/C AND ACCOMPANIED BY THIS GROUP COUNSELOR, SALINE LOCK REMOVED PRIOR TO LEAVING THE UNIT, EMOTIONAL SUPPORT GIVEN, FOLLOW UP APPOINTMENTS ENCOURAGED.
--- NOTE | 2021-08-05 12:39 | NUR ---
SKYLER following. Discussed with RN, pt from home at [facility]. Pt walked 375ft with no device and is not having an trouble ambulating in hallways. Pt couldn't remember the street address of his home but knew [id number] and was able to recognize the apartment building in a photo when SKYLER [facility] Pt desperately wanting to discharge and frequently coming out of his room, waiting at the door and at times attempting to ambulate past the nurses station on his way out. Pt clearly knew he had belongings and money here and was requesting this be returned. Pt knew his name and was adamant about leaving. Pt stating his daughter, Erna (referred to her as his "first girl"), has been trying to put him in a home which he does not want. SW called [facility] to confirm pt did in fact reside there, they verified but then stated his daughter said he wasn't coming back due to patient wandering off (which led pt to being admitted). SKYLER explained that we would be setting up home health, to which pt was agreeable. SKYLER spoke with pt's daughter, Erna to advise of the same, Erna was very concerned about pt discharging and stated he needed to go straight from the hospital to a residential, and that she had some sort of certificate stating he needed to be in a facility. SKYLER questioned if this had been started or was in the process since pt was still residing at [facility]. Erna advised [facility] (Stuart : [phone], fax: [phone]), but that she had stopped working on it due to patient being admitted. Erna stating the patient cannot be allowed to leave the hospital. SKYLER explained that the patient cannot be physically restrained and that we can provide him a safe ride home, as well as home health and make a hotline report to [facility]. SKYLER explained that pt has been trying to leave all morning and a safe ride would be better than him sneaking out AMA. SKYLER agreed to contact [facility] but could not guarantee that pt would be staying at [facility] due to previously mentioned reasons. SKYLER provided mill supervisor Nitin Hardwick's number to pt's daughter. SW faxed referral to [facility] and spoke with Stuart, Stuart reported the patient had not been accepted but that he was familiar with the name, stating they had not received any paperwork on him from anyone. SKYLER went back to speak with pt, however pt had already left. SKYLER called Stuart a couple hours after sending referral to check on status, however no answer. SKYLER made APS hotline for pt poor choices, intake ID#[id number].
== END 2021-08-05 11:35 | disposition home health service (06) | DRG 871 ==
LOC: ER 13:36 → 5 SOUTH 17:22
PROVIDERS: ADMIT Internal Medicine; ATTEND Internal Medicine
DX: A41.9 Sepsis, unspecified organism (principal); G93.41 Metabolic encephalopathy; N39.0 Urinary tract infection, site not specified; I65.29 Occlusion and stenosis of unspecified carotid artery; J43.9 Emphysema, unspecified; M47.819 Spondylosis without myelopathy or radiculopathy, site unspecified; M48.02 Spinal stenosis, cervical region; S00.01XA Abrasion of scalp, initial encounter; S00.81XA Abrasion of other part of head, initial encounter; Y93.01 Activity, walking, marching and hiking; Z20.822 Contact with and (suspected) exposure to COVID-19; Z86.73 Personal history of transient ischemic attack (TIA), and cerebral infarction without residual deficits; W01.0XXA Fall on same level from slipping, tripping and stumbling without subsequent striking against object, initial encounter; Y93.89 Activity, other specified; Y92.89 Other specified places as the place of occurrence of the external cause; Y99.8 Other external cause status
CPT/HCPCS: 36415; 70450; 71045; 72125; 80053; 81001; 83605; 85025; 87040; 87086; 87426; 93005; 96361; 96374; J0360; J0696; J1644; J3010; J7030; U0003; U0005; 97110-GP; 97535-GO; 99285-25; G0378